=== PATIENT | male | born 1960 | race Caucasian/White ===

== ENCOUNTER 2022-02-20 11:30 | Outpatient (CLI) | payer MEDICARE, SELFPAY ==
--- NOTE | 2022-02-20 11:45 | XRR_ITS ---
PROCEDURE INFORMATION: Exam: XR Right Shoulder Exam date and time: 02/20/2022 12:10 PM Age: 61 years old Clinical indication: Patient HX: History--no injury reported, right shoulder pain; Additional info: Nontraumatic tear of R rotator cuff TECHNIQUE: Imaging protocol: XR Right shoulder. Views: 2 or more views. COMPARISON: No relevant prior studies available. FINDINGS: Bones/joints: Normal. Soft tissues: Normal. XR/XR shoulder RT min 2V* [id number] IMPRESSION: No acute findings.
== END 2022-02-20 11:31 | disposition home or self-care (01) ==
LOC: RAD 11:37
PROVIDERS: Family Provider Family Medicine; PCP Family Medicine; Visit Provider Family Medicine
DX: M75.101 Unspecified rotator cuff tear or rupture of right shoulder, not specified as traumatic (principal)
CPT/HCPCS: 73030

== ENCOUNTER 2024-04-16 17:20 | Emergency (ER) | payer MEDICARE, SELFPAY ==
[2024-04-16 17:24] VITALS: BP 175/92; PULSE 112; TEMP 36.8; O2SAT 95; BMI 23.7
--- NOTE | 2024-04-16 17:24 | ECG_ITS ---
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 Measurements Intervals [place] Rate: 118 P: 77 CA: 150 QRS: 83 QRSD: 93 T: 65 QT: 339 QTc: 476 Interpretive Statements SINUS TACHYCARDIA WITH FREQUENT VENTRICULAR PREMATURE COMPLEXES RIGHT ATRIAL ENLARGEMENT [0.3mV P-WAVE] MODERATE ST DEPRESSION [0.05+ mV ST DEPRESSION] No previous ECG available for comparison Electronically Signed On 04-17-2024 7:54:22 CDT by Jericho Álvarez M.D. [id number]
--- NOTE | 2024-04-16 17:45 | ED_ITS ---
Documented by User: NICOLE Carrillo 04/16/24 20:49 HPI - Arrhythmia/Palpitations 2 General: Chief Complaint: Arrhythmia/Palpitations Stated Complaint: palpitations Time Seen by Provider: 04/16/24 17:31 History of Present Illness: 63-year-old male patient comes in today with complaints of palpitations. Patient states for the last 3 days he has felt like his heart was racing and he felt palpitations. Patient denies any cardiac problems, blood pressure problems, or lung disease. Patient does take alprazolam 1 mg 3 times a day for anxiety along with baclofen and gabapentin for chronic back pain. Patient does endorse use of tobacco but does not use methamphetamines, EtOH, or THC. Patient denies any recent illnesses. Patient appears nontoxic. Patient appears in no pain. Review of Systems 2 General: Reports: 10 or more systems reviewed and unremarkable except in HPI and below Card: Reports: palpitations Physical Exam 2 Const: COMMON NORMALS: alert HENMT: COMMON NORMALS: normocephalic HEAD & SCALP: normocephalic MOUTH: Normal oral and palatal mucosa present Neck/C-Spine: COMMON NORMALS: full ROM Chest: COMMONS NORMALS: normal inspection of the chest Resp: COMMON NORMALS: normal respiratory effort and clear to auscultation bilaterally AUSCULTATION: clear to auscultation bilaterally Cardio: RATE: tachycardic GI: COMMON NORMALS: Soft to palpation and non-tender PALPATION: Yes Soft to palpation Back/Pelvis: COMMON NORMALS: thoracic and lumbar spine normal to inspection Extremity: COMMON NORMALS: normal to inspection Neuro: SENSORIUM/ORIENTATION: Yes alert Skin: COMMON NORMALS: turgor normal GENERAL SKIN EXAM: turgor normal Course 2 Vital Signs: Vital signs: Vital Signs Temperature 98.3 F 04/16/24 17:24 Pulse Rate 94 04/16/24 20:52 Respiratory Rate 16 04/16/24 20:52 Blood Pressure 110/70 04/16/24 20:52 Pulse Oximetry 94 04/16/24 20:52 Oxygen Delivery Me thod Room Air 04/16/24 17:24 [facility] - Arrhythmia/Palpitations Medical Decision Making 63-year-old male patient comes in today for complaints of elevated heart rate with palpitations. Patient states that her heart was racing. Patient has had symptoms for the last 3 days. Patient reports no shortness of breath or chest pain. Patient appears anxious. Respirations are even. Heart rates tachycardic in the 110s. Differential diagnosis includes not limited to electrolyte imbalance, ACS, adverse drug effect, anxiety, hypertension, tachycardia. CBC notes mild leukocytosis of 14,000. CMP was unremarkable. First troponin was 18-second troponin was 19 showing a within normal limit delta curve. TSH was normal. Magnesium was normal. Patient was given a dose of labetalol for his blood pressure and Ativan for anxiety. Patient significant improvement in pulse rate coming down into the 80s and patient felt much improved. Believe patient had some anxiety and some uncontrolled sinus tachycardia with hypertension. Will start patient on some metoprolol 25 mg twice a day and have him follow-up with primary care for further evaluation and treatment. Lab Data 04/16/24 17:55 04/16/24 17:55 Laboratory Results WBC 14.03 10^3/uL (3.29-11.43) H 04/16/24 17:55 RBC 5.19 10^6/uL (3.85-5.65) 04/16/24 17:55 Hgb 16.90 g/dL (11.27-16.99) 04/16/24 17:55 Hct 50.1 % (37-53) 04/16/24 17:55 MCV 96.5 fl (82-101) 04/16/24 17:55 MCH 32.6 pg (27-33) 04/16/24 17:55 MCHC 33.7 g/dL (30-55) 04/16/24 17:55 RDW 13.1 % (12.1-15.1) 04/16/24 17:55 Plt Count 258 10^3/cmm (157-399) 04/16/24 17:55 MPV 10.8 fL (7.4-10.4) H 04/16/24 17:55 Neut % (Auto) 73.2 % 04/16/24 17:55 Lymph % (Auto) 20.7 % 04/16/24 17:55 [place] % (Auto) 4.9 % 04/16/24 17:55 Eos % (Auto) 0.4 % 04/16/24 17:55 Baso % (Auto) 0.4 % 04/16/24 17:55 Neut # (Auto) 10.26 10^3/uL (1.8-7.7) H 04/16/24 17:55 Lymph # (Auto) 2.9 10^3/uL (0.8-4.8) 04/16/24 17:55 [place] # (Auto) 0.7 10^3/uL (0.2-0.9) 04/16/24 17:55 Eos # (Auto) 0.1 10^3/uL (0.0-0.8) 04/16/24 17:55 Baso # (Auto) 0.1 10^3/uL (0.0-0.1) 04/16/24 17:55 Nucleated RBC % (auto) 0 % 04/16/24 17:55 Nucleated RBCs # 0.0 /100WBC 04/16/24 17:55 Sodium 142 mmol/L (136-145) 04/16/24 17:55 Potassium 4.1 mmol/L (3.5-5.1) 04/16/24 17:55 Chloride 102 mmol/L (98-107) 04/16/24 17:55 Carbon Dioxide 26 mmol/L (22-29) 04/16/24 17:55 Anion Gap 18.1 (5-19) 04/16/24 17:55 BUN 11 mg/dL (8-23) 04/16/24 17:55 Creatinine 0.9 mg/dL (0.7-1.2) 04/16/24 17:55 GFR Calculation 84.7 mL/min (90-130) L 04/16/24 17:55 Glucose 146 mg/dL (65-115) H 04/16/24 17:55 Calculated Osmolality 296 mOsm/kg (285-295) H 04/16/24 17:55 Calcium 9.5 mg/dL (8.5-10.5) 04/16/24 17:55 Magnesium 1.8 mg/dL (1.7-2.3) 04/16/24 17:55 Total Bilirubin 0.5 mg/dL (0.15-1.2) 04/16/24 17:55 AST 14 U/L (0-40) 04/16/24 17:55 ALT 15 U/L (0-41) 04/16/24 17:55 Alkaline Phosphatase 109 U/L (40-130) 04/16/24 17:55 Troponin T Baseline 18 ng/L (0-15) H 04/16/24 17:55 Troponin T 120 Minute 19.74 ng/L (0-15) H 04/16/24 19:41 Delta Troponin T 1.74 ABS# (0-10) 04/16/24 19:41 Total Protein 7.3 g/dL (6.6-8.7) 04/16/24 17:55 Albumin 4.2 g/dL (3.5-5.2) 04/16/24 17:55 Globulin 3.1 g/dL (1.3-4.6) 04/16/24 17:55 TSH 2.34 uIU/mL (0.27-4.20) 04/16/24 17:55 All radiology interpretation(s) finalized by discharge EKG Data EKG 1: I personally reviewed and interpreted this EKG as follows: EKG interpretation date: 04/16/24 EKG interpretation time: 17:32 Interpretation: EKG shows a sinus rhythm with tachycardia with a regular rate and 118 bpm. Patient has multifocal PVCs. No ST elevation is noted. Dr. Dumnot, attending ER physician reviewed EKG. Computer generated interpretation: Sinus tachycardia with frequent ventricular premature complexes, right atrial enlargement, moderate ST depression, abnormal EKG, unconfirmed report. Discharge Plan Discharge Patient Disposition: Home Clinical Impression: Palpitations, Anxiety, Sinus tachycardia Condition: Stable Prescriptions: New metoprolol tartrate 25 mg tablet 25 mg PO BID Qty: 60 0RF Discharge Orders: Discharge ED (Routine); Ordered 04/16/24 Ordered By: Juanito Mims Referrals: Marlene Harman DO [Primary Care Provider] - Discharge Diet: Usual diet Discharge Activity: Increase activity as tolerated Activity Restrictions/Additional Instructions: Follow-up with primary care in 1 week. Thank you for choosing [facility] for your healthcare needs today. Please realize that you were seen in the emergency department and that we are providing you with an emergency medical screening exam and this may not be a complete and all exclusive of all testing and/or medical workup we may need to determine your element or severity of your illness. It is very important that you follow-up as instructed with your primary care provider or specialist for the additional evaluation and to discuss your medical treatment plan. You may return to the emergency department should you have concerns or if your condition changes or worsens in any way. Coding Level of Care Code ED Box Sealing Machine Feeder for Hemant Fwd Documented by User: Hank Barajas, 04/17/24 00:31 HPI - Arrhythmia/Palpitations 2 General: Chief Complaint: Arrhythmia/Palpitations Stated Complaint: palpitations Time Seen by Provider: 04/16/24 17:31 Course 2 Vital Signs: Vital signs: Vital Signs Temperature 98.3 F 04/16/24 17:24 Pulse Rate 94 04/16/24 20:52 Respiratory Rate 16 04/16/24 20:52 Blood Pressure 110/70 04/16/24 20:52 Pulse Oximetry 94 04/16/24 20:52 Oxygen Delivery Me thod Room Air 04/16/24 17:24 MDM - Arrhythmia/Palpitations Medical Decision Making 63-year-old male patient comes in today for complaints of elevated heart rate with palpitations. Patient states that her heart was racing. Patient has had symptoms for the last 3 days. Patient reports no shortness of breath or chest pain. Patient appears anxious. Respirations are even. Heart rates tachycardic in the 110s. Differential diagnosis includes not limited to electrolyte imbalance, ACS, adverse drug effect, anxiety, hypertension, tachycardia. CBC notes mild leukocytosis of 14,000. CMP was unremarkable. First troponin was 18-second troponin was 19 showing a within normal limit delta curve. TSH was normal. Magnesium was normal. Patient was given a dose of labetalol for his blood pressure and Ativan for anxiety. Patient significant improvement in pulse rate coming down into the 80s and patient felt much improved. Believe patient had some anxiety and some uncontrolled sinus tachycardia with hypertension. Will start patient on some metoprolol 25 mg twice a day and have him follow-up with primary care for further evaluation and treatment. This patient was originally seen by NICOLE Jamison.? I agree with his history, evaluation, and treatment. Lab Data 04/16/24 17:55 04/16/24 17:55 Laboratory Results WBC 14.03 10^3/uL (3.29-11.43) H 04/16/24 17:55 RBC 5.19 10^6/uL (3.85-5.65) 04/16/24 17:55 Hgb 16.90 g/dL (11.27-16.99) 04/16/24 17:55 Hct 50.1 % (37-53) 04/16/24 17:55 MCV 96.5 fl (82-101) 04/16/24 17:55 MCH 32.6 pg (27-33) 04/16/24 17:55 MCHC 33.7 g/dL (30-55) 04/16/24 17:55 RDW 13.1 % (12.1-15.1) 04/16/24 17:55 Plt Count 258 10^3/cmm (157-399) 04/16/24 17:55 MPV 10.8 fL (7.4-10.4) H 04/16/24 17:55 Neut % (Auto) 73.2 % 04/16/24 17:55 Lymph % (Auto) 20.7 % 04/16/24 17:55 [place] % (Auto) 4.9 % 04/16/24 17:55 Eos % (Auto) 0.4 % 04/16/24 17:55 Baso % (Auto) 0.4 % 04/16/24 17:55 Neut # (Auto) 10.26 10^3/uL (1.8-7.7) H 04/16/24 17:55 Lymph # (Auto) 2.9 10^3/uL (0.8-4.8) 04/16/24 17:55 [place] # (Auto) 0.7 10^3/uL (0.2-0.9) 04/16/24 17:55 Eos # (Auto) 0.1 10^3/uL (0.0-0.8) 04/16/24 17:55 Baso # (Auto) 0.1 10^3/uL (0.0-0.1) 04/16/24 17:55 Nucleated RBC % (auto) 0 % 04/16/24 17:55 Nucleated RBCs # 0.0 /100WBC 04/16/24 17:55 Sodium 142 mmol/L (136-145) 04/16/24 17:55 Potassium 4.1 mmol/L (3.5-5.1) 04/16/24 17:55 Chloride 102 mmol/L (98-107) 04/16/24 17:55 Carbon Dioxide 26 mmol/L (22-29) 04/16/24 17:55 Anion Gap 18.1 (5-19) 04/16/24 17:55 BUN 11 mg/dL (8-23) 04/16/24 17:55 Creatinine 0.9 mg/dL (0.7-1.2) 04/16/24 17:55 GFR Calculation 84.7 mL/min (90-130) L 04/16/24 17:55 Glucose 146 mg/dL (65-115) H 04/16/24 17:55 Calculated Osmolality 296 mOsm/kg (285-295) H 04/16/24 17:55 Calcium 9.5 mg/dL (8.5-10.5) 04/16/24 17:55 Magnesium 1.8 mg/dL (1.7-2.3) 04/16/24 17:55 Total Bilirubin 0.5 mg/dL (0.15-1.2) 04/16/24 17:55 AST 14 U/L (0-40) 04/16/24 17:55 ALT 15 U/L (0-41) 04/16/24 17:55 Alkaline Phosphatase 109 U/L (40-130) 04/16/24 17:55 Troponin T Baseline 18 ng/L (0-15) H 04/16/24 17:55 Troponin T 120 Minute 19.74 ng/L (0-15) H 04/16/24 19:41 Delta Troponin T 1.74 ABS# (0-10) 04/16/24 19:41 Total Protein 7.3 g/dL (6.6-8.7) 04/16/24 17:55 Albumin 4.2 g/dL (3.5-5.2) 04/16/24 17:55 Globulin 3.1 g/dL (1.3-4.6) 04/16/24 17:55 TSH 2.34 uIU/mL (0.27-4.20) 04/16/24 17:55 Discharge Plan Discharge Patient Disposition: Home Clinical Impression: Palpitations, Anxiety, Sinus tachycardia Condition: Stable Prescriptions: New metoprolol tartrate 25 mg tablet 25 mg PO BID Qty: 60 0RF Discharge Orders: Discharge ED (Routine); Ordered 04/16/24 Ordered By: Juanito Mims Referrals: Marlene Harman DO [Primary Care Provider] - Discharge Diet: Usual diet Discharge Activity: Increase activity as tolerated Activity Restrictions/Additional Instructions: Follow-up with primary care in 1 week. Thank you for choosing [facility] for your healthcare needs today. Please realize that you were seen in the emergency department and that we are providing you with an emergency medical screening exam and this may not be a complete and all exclusive of all testing and/or medical workup we may need to determine your element or severity of your illness. It is very important that you follow-up as instructed with your primary care provider or specialist for the additional evaluation and to discuss your medical treatment plan. You may return to the emergency department should you have concerns or if your condition changes or worsens in any way. Coding Level of Care Code ED Box Sealing Machine Feeder for Hemant Ghosh
[2024-04-16 17:59] LABS: Basophils # 0.1 10^3/uL (0.0-0.1); Basophils % 0.4 %; Eosinophils # 0.1 10^3/uL (0.0-0.8); Eosinophils % 0.4 %; Hematocrit 50.1 % (37-53); Lymphocytes # 2.9 10^3/uL (0.8-4.8); Lymphocytes % 20.7 %; Mean Corpuscular HGB Conc 33.7 g/dL (30-55); Mean Corpuscular Hemoglobin 32.6 pg (27-33); Mean Corpuscular Volume 96.5 fl (82-101); Mean Platelet Volume 10.8 fL (7.4-10.4); Monocytes # 0.7 10^3/uL (0.2-0.9); Monocytes % 4.9 %; Neutrophils # 10.26 10^3/uL (1.8-7.7); Neutrophils % 73.2 %; Nucleated Red Blood Cells % 0 %; Platelet Count 258 10^3/cmm (157-399); Red Blood Count 5.19 10^6/uL (3.85-5.65); Red Cell Distribution Width 13.1 % (12.1-15.1); White Blood Count 14.03 10^3/uL (3.29-11.43)
[2024-04-16] MEDS: labetalol 5 mg/mL SDV 20mL 20 MG IVP (18:14)
[2024-04-16] MEDS: LORazepam 2 mg/mL INJ 1 mL IVP (18:16)
[2024-04-16 18:22] LABS: Troponin(5th) Baseline 18 ng/L (0-15)
[2024-04-16 18:26] LABS: Alanine Aminotransferase 15 U/L (0-41); Albumin Level 4.2 g/dL (3.5-5.2); Alkaline Phosphatase 109 U/L (40-130); Anion Gap 18.1 (5-19); Aspartate Amino Transferase 14 U/L (0-40); Blood Urea Nitrogen 11 mg/dL (8-23); Calcium 9.5 mg/dL (8.5-10.5); Carbon Dioxide 26 mmol/L (22-29); Chloride 102 mmol/L (98-107); Creatinine Clr Calc Pharmacy 87.9912; Globulin 3.1 g/dL (1.3-4.6); Glomerular Filtration Rate 84.7 mL/min (90-130); Glucose 146 mg/dL (65-115); Magnesium 1.8 mg/dL (1.7-2.3); Osmolality Calculated 296 mOsm/kg (285-295); Potassium 4.1 mmol/L (3.5-5.1); Sodium 142 mmol/L (136-145); Thyroid Stimulating Hormone 2.34 uIU/mL (0.27-4.20); Total Bilirubin 0.5 mg/dL (0.15-1.2); Total Protein 7.3 g/dL (6.6-8.7)
[2024-04-16 19:59] VITALS: PULSE 83; RESP 17; O2SAT 95
[2024-04-16 20:16] LABS: Troponin 5 2HR 19.74 ng/L (0-15); Troponin 5 2HR Delta 1.74 ABS# (0-10)
[2024-04-16] MEDS: metoprolol tartrate 25 mg Tablet PO (20:49)
[2024-04-16 20:52] VITALS: BP 110/70; PULSE 94; RESP 16; O2SAT 94
== END 2024-04-16 20:53 | disposition home or self-care (01) ==
PROVIDERS: Emergency Provider Nurse Practitioner Family; Family Provider Family Medicine; PCP Family Medicine
DX: R00.2 Palpitations (principal); F41.9 Anxiety disorder, unspecified; R00.0 Tachycardia, unspecified
CPT/HCPCS: 36415; 80053; 83735; 84443; 84484; 85025; 93005; 96374; 96375; 99284; J2060; J3490

== ENCOUNTER → 2025-01-24 09:50 | Outpatient (BNVA) | payer MEDICARE, SELFPAY | PROVIDERS: Family Provider Family Medicine; PCP Family Medicine; Referring Provider Nurse Practitioner Family; Visit Provider Surgery | DX: K29.70 Gastritis, unspecified, without bleeding (principal); R03.0 Elevated blood-pressure reading, without diagnosis of hypertension; K80.50 Calculus of bile duct without cholangitis or cholecystitis without obstruction | CPT/HCPCS: 99204 ==

== ENCOUNTER 2025-01-25 09:16 | Outpatient (CLI) | payer MEDICARE, SELFPAY ==
[2025-01-25 09:47] LABS: Basophils # 0.1 10^3/uL (0.0-0.1); Basophils % 1.1 %; Eosinophils # 0.3 10^3/uL (0.0-0.8); Eosinophils % 3.5 %; Hematocrit 44.2 % (37-53); Lymphocytes % 26.1 %; Mean Corpuscular HGB Conc 33.9 g/dL (30-55); Mean Corpuscular Hemoglobin 33.3 pg (27-33); Mean Corpuscular Volume 98.2 fl (82-101); Mean Platelet Volume 10.7 fL (7.4-10.4); Monocytes # 0.5 10^3/uL (0.2-0.9); Monocytes % 6.2 %; Neutrophils % 62.8 %; Nucleated Red Blood Cells % 0 %; Platelet Count 198 10^3/cmm (157-399); Red Cell Distribution Width 12.7 % (12.1-15.1); White Blood Count 7.47 10^3/uL (3.29-11.43)
[2025-01-25 10:04] LABS: Alanine Aminotransferase 8 U/L (0-41); Albumin Level 3.9 g/dL (3.5-5.2); Alkaline Phosphatase 97 U/L (40-130); Anion Gap 15.1 (5-19); Aspartate Amino Transferase 15 U/L (0-40); Blood Urea Nitrogen 10 mg/dL (8-23); Calcium 9.4 mg/dL (8.5-10.5); Carbon Dioxide 28 mmol/L (22-29); Chloride 105 mmol/L (98-107); Globulin 2.6 g/dL (1.3-4.6); Glomerular Filtration Rate 96.7 mL/min (90-130); Glucose 96 mg/dL (65-115); Osmolality Calculated 297 mOsm/kg (285-295); Potassium 4.1 mmol/L (3.5-5.1); Sodium 144 mmol/L (136-145); Total Bilirubin 0.4 mg/dL (0.15-1.2); Total Protein 6.5 g/dL (6.6-8.7)
== END 2025-01-25 09:17 | disposition home or self-care (01) ==
PROVIDERS: Family Provider Family Medicine; PCP Family Medicine; Visit Provider Surgery
DX: Z51.81 Encounter for therapeutic drug level monitoring (principal); Z79.1 Long term (current) use of non-steroidal anti-inflammatories (NSAID); K80.50 Calculus of bile duct without cholangitis or cholecystitis without obstruction
CPT/HCPCS: 36415; 80048; 80076; 85025

== ENCOUNTER 2025-02-23 07:39 | Outpatient (CLI) | payer MEDICARE, SELFPAY ==
--- NOTE | 2025-02-23 07:45 | US_ITS ---
WS: [id number] RIGHT UPPER QUADRANT ULTRASOUND HISTORY: RUQ pain COMPARISON: None available. Liver: 15.9 cm in length. Normal size liver and echogenicity. No bile duct dilatation or mass. Portal Vein: Normal hepatopetal flow with monophasic waveform. Gallbladder: Gallbladder is distended with stones. Numerous stones or shadowing in the gallbladder. No wall thickening or pericholecystic fluid. CBD: 0.5 cm Pancreas: Normal size and echogenicity. Right kidney: 12.3 cm in length. Normal size and echogenicity. No hydronephrosis or mass. Aorta and IVC: Unremarkable abdominal aorta and IVC. No ascites. US/US gall bladder 34650 IMPRESSION: 1. Cholelithiasis without acute cholecystitis. Numerous stones fill the gallbl adder. 2. No intrahepatic duct dilatation.
== END 2025-02-23 07:40 | disposition home or self-care (01) ==
LOC: RAD 07:41
PROVIDERS: Family Provider Family Medicine; PCP Family Medicine; Visit Provider Surgery
DX: K80.50 Calculus of bile duct without cholangitis or cholecystitis without obstruction (principal); K80.20 Calculus of gallbladder without cholecystitis without obstruction
CPT/HCPCS: 76705

== ENCOUNTER 2025-04-05 10:12 | Day surgery (SDC) | payer MEDICARE, SELFPAY ==
[2025-04-05 10:41] VITALS: BP 144/79; PULSE 69; RESP 17; TEMP 36.4; O2SAT 94
[2025-04-05 10:42] VITALS: BMI 23.0
--- NOTE | 2025-04-05 10:44 | P.HP_ITS ---
Same Day Surgery H&P Indication for Procedure/HPI DATE OF PROCEDURE: April 05, 2025 CHIEF COMPLAINT/INDICATIONFOR SURGICAL PROCEDURE: abdominal pain PREOP DIAGNOSIS: abdominal pain PLANNED PROCEDURE: Operation Date: 04/05/25 12:10 Proposed Procedures p EGD with Biopsy 94868, K29.70(Not Applicable) - El Murphy MD Medications/Allergies* Home Medications ?Medication ?Instructions ?Recorded ?Confirmed ?Type alprazolam 1 mg tablet 1 mg PO TID PRN Anxiety 04/1304/02/25 History baclofen 20 mg tablet 20 mg PO QDAY PRN Spasms 04/1304/02/25 History gabapentin 100 mg capsule 100 mg PO BEDTIME 01/24/25 0 04/02/25 History mirtazapine 15 mg tablet 15 mg PO BEDTIME 01/24/25 History pantoprazole 40 mg tablet,delayed 40 mg PO BID 04/02/25 History release sucralfate 1 gram tablet 1 g PO QID 01/24/25 04/02/25 History temazepam 30 mg capsule 30 mg PO BEDTIME 01/24/25 History Men 50 Plus Multivitamin 1 tab PO DAILY 04/02/2503/20 History elderberry fruit 200 mg capsule 400 mg PO DAILY 04/02/25 History garlic 2,000 mg PO DAILY 04/02/25 0 04/02/25 History Allergies/Adverse Reactions Allergy/AdvReac Type Severity Reaction Status Date / Time No Known Allergies Allergy Verified 03/13/25 14:12 Pertinent History/Comorbid Conditions* Social History Smoking and tobacco/nicotine status: current every day tobacco/nicotine user Alcohol intake: never Pertinent Exam Findings alert, oriented x 3 and clear to auscultation bilaterally Recommendations Surgery/Procedure today Coding Level of Care Code Acute Code for Chg Fwd
--- NOTE | 2025-04-05 10:44 | W.PM.OPSFHP ---
Same Day Surgery H&P Indication for Procedure/HPI DATE OF PROCEDURE: April 05, 2025 CHIEF COMPLAINT/INDICATIONFOR SURGICAL PROCEDURE: abdominal pain PREOP DIAGNOSIS: abdominal pain PLANNED PROCEDURE: Operation Date: 04/05/25 12:10 Proposed Procedures p EGD with Biopsy 52052, K29.70(Not Applicable) - El Murphy MD Medications/Allergies* Home Medications ?Medication ?Instructions ?Recorded ?Confirmed ?Type alprazolam 1 mg tablet 1 mg PO TID PRN Anxiety 01/24/25 04/02/25 History baclofen 20 mg tablet 20 mg PO QDAY PRN Spasms 01/24/25 04/02/25 History gabapentin 100 mg capsule 100 mg PO BEDTIME 01/24/25 04/02/25 History mirtazapine 15 mg tablet 15 mg PO BEDTIME 01/24/25 04/02/25 History pantoprazole 40 mg tablet,delayed 40 mg PO BID 01/24/25 04/02/25 History release sucralfate 1 gram tablet 1 g PO QID 01/24/25 04/02/25 History temazepam 30 mg capsule 30 mg PO BEDTIME 01/24/25 04/02/25 History Men 50 Plus Multivitamin 1 tab PO DAILY 04/02/25 04/02/25 History elderberry fruit 200 mg capsule 400 mg PO DAILY 04/02/25 04/02/25 History garlic 2,000 mg PO DAILY 04/02/25 04/02/25 History Allergies/Adverse Reactions Allergy/AdvReac Type Severity Reaction Status Date / Time No Known Allergies Allergy Verified 03/13/25 14:12 Pertinent History/Comorbid Conditions* Social History Smoking and tobacco/nicotine status: current every day tobacco/nicotine user Alcohol intake: never Pertinent Exam Findings alert, oriented x 3 and clear to auscultation bilaterally Recommendations Surgery/Procedure today Coding Level of Care Code Acute Code for Chg Fwd
--- NOTE | 2025-04-05 11:37 | ANES.PREANE2 ---
Pre-Anesthetic Assessment Height/Weight: Height 1.8 m Weight 74.843 kg Temp Pulse Resp BP Pulse Ox O2 Del Method 97.6 F 69 17 144/79 94 Room Air 04/05/25 10:41 04/05/25 10:41 04/05/25 10:41 04/05/25 10:41 04/05/25 10:41 04/05/25 10:41 Preop Diagnosis: abdominal pain Operation Date: 04/05/25 12:10 Proposed Procedures p EGD with Biopsy 98210, K29.70(Not Applicable) - El Murphy MD Familial anesthetic complications: none Last intake: Intake Last Liquid Date 04/04/25 Last Liquid Time 18:00 Last Solid Date 04/04/25 Last Solid Time 18:00 Social Tobacco (smoked 1ppd x 56years) Exam alert, oriented x 3, clear to auscultation bilaterally and regular rate & rhythm Airway Submandibular: within normal limits Cervical ROM: within normal limits Mallampati: Class II Comments: Comments: poor dentition History/ROS No significant complaints Pulmonary Chronic Obstructive Pulmonary Disease CV/HEM Coronary Artery Disease, Hypertension and None reported None reported Hepatic None reported GI None reported Metabolic None reported Neuropsych None reported Anesthetic Plan ASA status: 3 Anesthesia: MAC Risk of > 500 ml blood loss (7ml/kg in children): No Medications/Allergies Home Medications ?Medication ?Instructions ?Recorded ?Confirmed ?Last Taken ?Type alprazolam 1 mg tablet 1 mg PO TID PRN Anxiety 01/24/25 04/02/25 04/02/25 History baclofen 20 mg tablet 20 mg PO QDAY PRN Spasms 01/24/25 04/02/25 04/02/25 History gabapentin 100 mg capsule 100 mg PO BEDTIME 01/24/25 04/02/25 Unknown History mirtazapine 15 mg tablet 15 mg PO BEDTIME 01/24/25 04/02/25 04/02/25 History pantoprazole 40 mg tablet,delayed 40 mg PO BID 01/24/25 04/02/25 04/02/25 History release sucralfate 1 gram tablet 1 g PO QID 01/24/25 04/02/25 04/02/25 History temazepam 30 mg capsule 30 mg PO BEDTIME 01/24/25 04/02/25 04/02/25 History Men 50 Plus Multivitamin 1 tab PO DAILY 04/02/25 04/02/25 04/02/25 History elderberry fruit 200 mg capsule 400 mg PO DAILY 04/02/25 04/02/25 04/02/25 History garlic 2,000 mg PO DAILY 04/02/25 04/02/25 04/02/25 History Allergies Allergy/AdvReac Type Severity Reaction Status Date / Time No Known Allergies Allergy Verified 03/13/25 14:12 Current Medications Generic Name Dose Route Start Last Admin Trade Name Freq PRN Reason Stop Dose Admin Sodium Chloride 1,000 mls @ 15 mls/hr 04/05/25 10:36 04/05/25 10:45 Sodium Chloride 0.9% IV 04/06/25 10:35 15 mls/hr .Q24H PRN Administration COLONOSCOPY FLUIDS PFSH Anesthesia Social History Smoking and tobacco/nicotine status: current every day tobacco/nicotine user Alcohol intake: never
[2025-04-05 11:44] VITALS: BP 118/82; PULSE 83; RESP 10; TEMP 36.2; O2SAT 98
--- NOTE | 2025-04-05 12:09 | ANE.PACU2 ---
Inpatient post-anesthesia follow up: Airway intact: Yes Vital signs: Temperature 97.1 F Pulse Rate 83 Respiratory Rate 10 Blood Pressure 118/82 Pulse Oximetry 98 Oxygen Delivery Me thod Room Air Oxygen Flow Rate Fraction of Inspir ed Oxygen Hydration adequate: Yes Nausea and vomiting: No Pain level: 1 Mental status: Baseline
== END 2025-04-05 12:09 | disposition home or self-care (01) ==
PROVIDERS: PCP Family Medicine; Visit Provider Surgery
PROC: 0DJ08ZZ Inspection of Upper Intestinal Tract, Via Natural or Artificial Opening Endoscopic (ICD-10-PCS; principal; 2025-04-05 12:10)
DX: R10.9 Unspecified abdominal pain (principal); J44.9 Chronic obstructive pulmonary disease, unspecified; I25.10 Atherosclerotic heart disease of native coronary artery without angina pectoris; I10 Essential (primary) hypertension; K21.9 Gastro-esophageal reflux disease without esophagitis; F17.200 Nicotine dependence, unspecified, uncomplicated
CPT/HCPCS: 43239; 88305; 88342; J2250; J2704; J7030

== ENCOUNTER → 2025-04-17 10:12 | Outpatient (BNVA) | payer MEDICARE, SELFPAY | PROVIDERS: PCP Family Medicine; Visit Provider Surgery | DX: K80.50 Calculus of bile duct without cholangitis or cholecystitis without obstruction (principal); K80.20 Calculus of gallbladder without cholecystitis without obstruction | CPT/HCPCS: 99214 ==

== ENCOUNTER 2025-05-14 06:08 | Day surgery (SDC) | payer MEDICARE, SELFPAY ==
--- NOTE | 2025-05-13 08:51 | ANES.PREANE2 ---
Pre-Anesthetic Assessment Height/Weight: Height 5 ft 11 in Preop Diagnosis: Chronic cholecystitis Operation Date: 05/14/25 07:00 Proposed Procedures p Laparoscopic POSSIBLE OPEN Cholecystectomy 57414 K80.50(Not Applicable) - El Murphy MD Was Beta Nurys taken within 24 hours: N/A Was Clonidine taken within 24 hours: N/A Social Tobacco and No alcohol Exam alert, oriented x 3, clear to auscultation bilaterally and regular rate & rhythm Airway Submandibular: within normal limits Cervical ROM: within normal limits Mallampati: Class III Comments: Comments: Very poor dentition, denies any loose Anesthetic Plan ASA status: 3 Anesthesia: General Other: No prior issues with anesthesia Patient was recently with us for EGD under MAC anesthesia and did well N.p.o. since yesterday evening History of COPD Hypertension on lisinopril. Preop BP 138/82 GERD, controlled with Protonix and sucralfate EKG showing sinus tachycardia with PVCs Plan for GETA Medications/Allergies Home Medications ?Medication ?Instructions ?Recorded ?Confirmed ?Last Taken ?Type alprazolam 1 mg tablet 1 mg PO TID PRN Anxiety 01/24/25 05/10/25 05/13/25 History baclofen 20 mg tablet 20 mg PO QDAY PRN Spasms 01/24/25 05/10/25 05/13/25 History mirtazapine 15 mg tablet 15 mg PO BEDTIME 01/24/25 05/14/25 05/13/25 History pantoprazole 40 mg tablet,delayed 40 mg PO BID 01/24/25 05/10/25 05/13/25 History release sucralfate 1 gram tablet 1 g PO QID 01/24/25 05/14/25 05/10/25 History temazepam 30 mg capsule 30 mg PO BEDTIME 01/24/25 05/14/25 05/09/25 History Men 50 Plus Multivitamin 1 tab PO DAILY 04/02/25 05/14/25 05/10/25 History elderberry fruit 200 mg capsule 400 mg PO DAILY 04/02/25 05/14/25 05/13/25 History garlic 2,000 mg PO DAILY 04/02/25 05/14/25 05/13/25 History lisinopril 20 mg tablet 20 mg PO QDAY 04/17/25 05/14/25 05/13/25 History Allergies Allergy/AdvReac Type Severity Reaction Status Date / Time No Known Allergies Allergy Verified 05/14/25 06:24 [facility] Anesthesia Social History Smoking and tobacco/nicotine status: current every day tobacco/nicotine user Alcohol intake: never
[2025-05-14] VITALS (17 sets, daily range): BP systolic 126–179; BP diastolic 78–107; PULSE 72–96; RESP 13–23; TEMP 35.9–36.8; O2SAT 91–96; BMI 23.0
--- NOTE | 2025-05-14 06:41 | P.HPUD_ITS ---
Surgery/Procedure H&P Update DATE OF PROCEDURE: May 14, 2025 DATE H&P PERFORMED: 04/17/25 H&P UPDATE INFORMATION: I have reviewed H&P completed within last 30 days, I have examined patient prior to procedure, No changes to prior documentation, H&P is in [facility] EMR on date indicated and Risks and benefits of the procedure reviewed PLANNED PROCEDURE: Operation Date: 05/14/25 07:00 Proposed Procedures p Laparoscopic POSSIBLE OPEN Cholecystectomy 59615 K80.50(Not Applicable) - El Murphy MD
[2025-05-14] MEDS: piperacillin-tazobactam 3.375 GM in sodium chloride 0.9% (plus) 50 ML IV (07:00)
[2025-05-14] MEDS: lidocaine-epi 1% 20 mL INJ 10 ML INJECTION (09:38)
[2025-05-14] MEDS: BUPivacaine 0.25% INJ 10 mL INJECTION (09:39)
--- NOTE | 2025-05-14 09:43 | PM.OP ---
Operative Report Date of procedure: May 14, 2025 Pre-op diagnosis: Symptomatic cholelithiasis, history of choledocholithiasis Post-op diagnosis: Same, chronic cholecystitis Post-op findings: Gallbladder was contracted, thickened pericholecystic tissue, there was adhesions from the omentum to the anterior gallbladder wall, significant scarring on the hepatocystic triangle making dissection extremely difficult Procedure done: Laparoscopic cholecystectomy (add modifier 22) Specimens removed/disposition: Gallbladder Surgeon: El Murphy MD Estimated blood loss: 10 Complications: None apparent Brief History: This is a 64-year-old male who had an episode of acute cholecystitis with choledocholithiasis last year, he underwent ERCP at outside institution. Now presents for Interval cholecystectomy. We discussed all risk benefits of the procedure and decided to proceed Procedure: Patient was brought into the OR, he was placed in a supine position. General anesthesia was given. The abdomen was prepped and draped in the usual sterile fashion. A timeout was conducted. I accessed the abdomen via a 5 mm Optiview port in the left upper quadrant. Initial pneumoperitoneum was obtained and no evidence of visceral injury during entry was noted. At 12 mm trocar was placed in the supraumbilical position under direct visualization. Additional 5 mm trocars were placed in the epigastrium right upper quadrant and right flank under direct visualization. The gallbladder was grasped from the fundus and retracted cephalad, I had to use a tenaculum for these as the gallbladder was extremely contracted and filled with stones, I then took down adhesions from the omentum to the anterior wall of the gallbladder all the way down to the area of the hepatocystic triangle. I then grasped the infundibulum and retracted in the inferolateral direction exposing the hepatocystic triangle. The peritoneum anterior to the hepatocystic triangle was opened with electrocautery, I carried this opening in the medial and lateral direction to the edges of the liver and then on the sides of the gallbladder to allow for better exposure. Anatomy was very difficult to identify, the tissue was severely thickened and scarred down. I started my dissection from the lateral portion of the gallbladder where I was able to get behind the gallbladder and I was able to then divide the cystic duct but after that the tissue was severely inflamed and thickened and from the medial aspect of the hepatocystic triangle structures were not able to be identified. I therefore switched to a top-down approach I started at the top of the gallbladder took down almost 2/3 of the gallbladder from the liver bed using electrocautery. At this point this allowed for better exposure and I started again dissection on the medial aspect of the hepatocystic triangle, I was able to encircle the cystic artery and cystic duct and elevate the remaining lower third of the gallbladder thus obtaining a critical view of safety. the cystic artery was double clipped proximally and single clipped distally and transected. The cystic duct was severely thickened I proceeded to do some more dissection to clear it completely to the junction with the CBD 1 due to the severe inflammation this was not possible. Since I had already the gallbladder from the liver bed I then proceeded to use a PDS Endoloop to encircle the cystic duct very proximal, once the Endoloop was completely secure I cut it and then I used 2 clips proximally and 1 clip distally and transected the cystic duct. No evidence of bile leak was noted. The gallbladder was retrieved in an Endo Catch bag via the umbilical trocar site. The liver bed, Endoloop and clips were inspected the area was hemostatic, there was no evidence of bile leak the clips appeared to be in good position. The liver bed was irrigated and suctioned. The umbilical trocar was removed and umbilical trocar site was closed with a 0 Vicryl Meng-Jonas suture passer under direct visualization. The epigastrium right upper quadrant right flank trocars were removed under direct visualization, the left upper quadrant trocar was used to evacuate the pneumoperitoneum and subsequently removed. Local anesthesia was infiltrated. Hemostasis was achieved from the trocar sites. The wounds were closed in layers using #3-0 Vicryl for the subcutaneous tissue #4 Monocryl for the skin. At the end of the procedure all counts were correct, the patient tolerated well the procedure was transferred to the PACU in stable condition. The dissection of the gallbladder was extremely difficult regarding significant technical expertise as well as a prolonged operative time.
[2025-05-14] MEDS: labetalol 5 mg/mL SDV 20mL 10 MG IVP (10:40)
--- NOTE | 2025-05-14 11:42 | ANE.PACU2 ---
Inpatient post-anesthesia follow up: Airway intact: Yes Vital signs: Temperature 97.2 F Pulse Rate 76 Respiratory Rate 16 Blood Pressure 151/78 Pulse Oximetry 92 Oxygen Delivery Me thod Room Air Oxygen Flow Rate 3 Fraction of Inspir ed Oxygen Hydration adequate: Yes Nausea and vomiting: No Pain level: 1 Mental status: Baseline
--- NOTE | 2025-05-14 11:46 | PC.NURSE ---
5 abdominal incision sites were observed to be clean, dry, and intact
== END 2025-05-14 11:42 | disposition home or self-care (01) ==
PROVIDERS: PCP Family Medicine; Visit Provider Surgery
PROC: 0FT44ZZ Resection of Gallbladder, Percutaneous Endoscopic Approach (ICD-10-PCS; CPT 47562; principal; 2025-05-14 07:00)
DX: K80.10 Calculus of gallbladder with chronic cholecystitis without obstruction (principal); J44.9 Chronic obstructive pulmonary disease, unspecified; I10 Essential (primary) hypertension; K21.9 Gastro-esophageal reflux disease without esophagitis; F17.200 Nicotine dependence, unspecified, uncomplicated
CPT/HCPCS: 47562; 88304; C1052; J2175; J2250; J2543; J2704; J3010; J3490; J7030; J9999

== ENCOUNTER → 2025-05-30 09:12 | Outpatient (BNVA) | payer MEDICARE, SELFPAY | PROVIDERS: PCP Family Medicine; Visit Provider Surgery | DX: K80.50 Calculus of bile duct without cholangitis or cholecystitis without obstruction (principal); K80.20 Calculus of gallbladder without cholecystitis without obstruction | CPT/HCPCS: 99024 ==

== ENCOUNTER 2025-06-21 13:52 | Outpatient (CLI) | payer MEDICARE, SELFPAY ==
--- NOTE | 2025-06-21 14:03 | CTR_ITS ---
PROCEDURE INFORMATION: Exam: CTA Abdominal Aorta and Bilateral Lower Extremities (Run-off) With Contrast Exam date and time: 06/21/2025 2:16 PM Age: 64 years old Clinical indication: Prior surgery; Surgery date: <1 month; Surgery type: Gb; Right leg pain, pad; Additional info: Pad/r popliteal artery occlusion TECHNIQUE: Imaging protocol: Computed tomographic angiography of the of the abdominal aorta, pelvis and bilateral lower extremities with contrast. 3D rendering (Not supervised by radiologist): MIP and/or 3D reconstructed images were created by the technologist. Radiation optimization: All CT scans at this facility use at least one of these dose optimization techniques: automated exposure control; mA and/or kV adjustment per patient size (includes targeted exams where dose is matched to clinical indication); or iterative reconstruction. Contrast material: OMNIPAQUE 350; Contrast volume: 125 ml; Contrast route: INTRAVENOUS (IV); COMPARISON: US gall bladder [id number] 02/23/2025 7:50 AM RADIATION DOSE METRICS: Total DLP (mGy-cm): 1480.21 FINDINGS: Aorta: No aortic aneurysm. No aortic dissection. Celiac and mesenteric arteries: No occlusion or significant stenosis. Renal arteries: No occlusion or significant stenosis. Right iliac arteries: There is segmental occlusion involving the right external iliac artery with reconstitution at the common femoral artery. Right femoral/popliteal arteries: Severe stenosis involving the common femoral artery caused by soft plaque. Right infrapopliteal arteries: No occlusion or significant stenosis. Left iliac arteries: There is segmental occlusion involving the external iliac artery with reconstitution of the common femoral artery. Left femoral/popliteal arteries: No occlusion or significant stenosis. Left infrapopliteal arteries: No occlusion or significant stenosis. Bypass grafts: None. Liver: No mass. Gallbladder and biliary ducts: The gallbladder has been resected. Pneumobilia is noted. Pancreas: Unremarkable. No mass. No ductal dilation. Spleen: Normal. No splenomegaly. Adrenal glands: Normal. No mass. Kidneys and ureters: Normal. No mass. Stomach and bowel: Multiple diverticula involve the sigmoid colon. There is no sign of diverticulitis. Appendix: No evidence of appendicitis. Urinary bladder: Unremarkable. No mass. Reproductive: Prostate gland enlargement is noted along with chronic bladder wall thickening. Intraperitoneal space: Unremarkable. No free air. No significant fluid collection. Lymph nodes: No lymphadenopathy. Bones/joints: No acute fracture. No dislocation. Soft tissues: Unremarkable. CT/CT angio abd aorta runof [id number] IMPRESSION: 1. 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 Prostate enlargement with chronic bladder wall changes 4. Sigmoid diverticulosis
[2025-06-21] MEDS: iohexol 350 mg/mL 500 mL Btl (per mL) IV (14:26)
== END 2025-06-21 13:53 | disposition home or self-care (01) ==
LOC: RAD 13:55
PROVIDERS: PCP Family Medicine; Visit Provider Nurse Practitioner Family
DX: I73.9 Peripheral vascular disease, unspecified (principal); K57.30 Diverticulosis of large intestine without perforation or abscess without bleeding; N40.0 Benign prostatic hyperplasia without lower urinary tract symptoms; N32.89 Other specified disorders of bladder
CPT/HCPCS: 75635